=== PATIENT | male | born 1995 | race Caucasian/White ===

== ENCOUNTER 2021-08-15 09:17 | Inpatient (IN) ==
[2021-08-15 15:40] LABS: Influenza A PCR Negative (Negative); Influenza B PCR Negative (Negative); Resp. Syncytial Virus PCR Negative (Negative)
[2021-08-15 16:14] LABS: SARS-CoV-2 by PCR (In House) Negative (Negative)
[2021-08-16] MEDS ORDERED: Mag Hydrox/Al Hydrox/Simeth 30 ML UDC PO PRN (10:29)
[2021-08-16] MEDS ORDERED: haloperidoL 5 MG TABLET PO PRN (10:29)
[2021-08-16] MEDS ORDERED: Ibuprofen 400 MG TABLET PO PRN (10:29)
[2021-08-16] MEDS ORDERED: hydrOXYzine pamoate 25 MG CAPSULE PO PRN (10:29)
[2021-08-16] MEDS ORDERED: *HR* LORazepam 1 MG TABLET PO PRN (10:29)
[2021-08-16] MEDS ORDERED: Haloperidol Lactate 5 MG/ML VIAL IM PRN (10:29)
[2021-08-16] MEDS ORDERED: MOM Conc 10 ML UD.LIQ PO PRN (10:29)
[2021-08-16] MEDS ORDERED: *HR* LORazepam 2 MG/ML VIAL IM PRN (10:29)
[2021-08-16] MEDS: Nicotine 2 MG GUM BC PRN (13:14)
[2021-08-17] MEDS: QUEtiapine Fumarate 25 MG TABLET PO PRN ×2 (01:07→21:58)
[2021-08-18] MEDS: Nicotine 2 MG GUM BC PRN ×2 (13:02→20:43)
[2021-08-18] MEDS: QUEtiapine Fumarate 25 MG TABLET PO PRN (20:43)
[2021-08-19 08:39] VITALS: BP 121/80; PULSE 64; TEMP 97.9; O2SAT 98
[2021-08-19] MEDS: Nicotine 2 MG GUM BC PRN (09:49)
== END 2021-08-19 14:10 | disposition home or self-care (01) | DRG 750 ==
LOC: EMEROOARM 09:17 → 1ANU 08-16 10:54
PROVIDERS: ADMIT Psychiatry & Neurology Psychiatry; ATTEND Psychiatry & Neurology Psychiatry